=== PATIENT | female | born 1935 | race Caucasian/White ===

== ENCOUNTER 2017-08-23 14:48 | Emergency (ER) | payer MEDICARE ==
[~2017-08-23] VITALS: Ht 165.1 cm; Wt 79.4 kg
[~2017-08-23 14:48] MED LIST: ADULT LOW DOSE81 MG; ATENOLOL 50 MG50 M1; NORCO 5-325 TA1 EACH PO; PRILOSEC40 MG; PROZAC 10 MG CA10 MG PO
[2017-08-23] MEDS ORDERED: NEXIUM40 MG PO (15:02)
[2017-08-23] MEDS ORDERED: NORVASC5 MG PO (15:03)
[2017-08-23] MEDS ORDERED: BENAZEPRIL HCL40 MG PO (15:03)
[2017-08-23] MEDS ORDERED: HYDROCODONE-AP1 EAC6 PO (16:22)
[2017-08-23 16:46] VITALS: BP 167/66
== END 2017-08-23 16:48 | disposition home or self-care (01) ==
LOC: M.ERS 14:48
DX: S52.592A Other fractures of lower end of left radius, initial encounter for closed fracture (principal); I10 Essential (primary) hypertension; F32.9 Major depressive disorder, single episode, unspecified; W18.39XA Other fall on same level, initial encounter; Y93.89 Activity, other specified; Y92.89 Other specified places as the place of occurrence of the external cause; Y99.8 Other external cause status

== ENCOUNTER → 2017-11-05 | Outpatient (CLI) | payer MEDICARE ==
[~2017-11-05] MED LIST changes: +BENAZEPRIL HCL40 MG PO; +HYDROCODONE-AP1 EAC6 PO; +NEXIUM40 MG PO; +NORVASC5 MG PO
== END ==
LOC: M.MRI 08:46
DX: S83.242A Other tear of medial meniscus, current injury, left knee, initial encounter (principal); S83.282A Other tear of lateral meniscus, current injury, left knee, initial encounter; G89.29 Other chronic pain; X58.XXXA Exposure to other specified factors, initial encounter; Y93.89 Activity, other specified; Y92.89 Other specified places as the place of occurrence of the external cause; Y99.8 Other external cause status

== ENCOUNTER 2018-08-08 12:10 | Emergency (ER) | payer MEDICARE ==
[~2018-08-08] VITALS: Ht 165.1 cm; Wt 77.1 kg
[2018-08-08] MEDS ORDERED: NEXIUM40 MG PO (12:17)
[2018-08-08] MEDS ORDERED: BENAZEPRIL HCL20 MG PO (12:18)
[2018-08-08] MEDS ORDERED: CARVEDILOL12.5 MG PO (12:18)
[2018-08-08] MEDS ORDERED: HYDROCHLOROTHIA25 M2 PO (12:19)
[2018-08-08] MEDS ORDERED: MOBIC15 MG PO (12:19)
[2018-08-08] MEDS ORDERED: ONE-DAILY MULT1 EAC1 PO (12:20)
[2018-08-08] MEDS ORDERED: CITRACAL + BON1 EACH PO (12:20)
[2018-08-08] MEDS ORDERED: VITAMIN B-121000 MC3 PO (12:21)
[2018-08-08] MEDS ORDERED: VITAMIN D3400 UNIT PO (12:21)
[2018-08-08] MEDS ORDERED: PRESERVISION T1 EACH PO (12:22)
[2018-08-08] MEDS ORDERED: NYSTATIN15 G2 TOP (12:34)
[2018-08-08 12:35] VITALS: BP 144/78
== END 2018-08-08 12:35 | disposition home or self-care (01) ==
LOC: M.ERS 12:10
DX: B37.9 Candidiasis, unspecified (principal); I10 Essential (primary) hypertension; F32.9 Major depressive disorder, single episode, unspecified